=== PATIENT | male | born 1985 | race Caucasian/White ===

== ENCOUNTER 2017-02-21 21:15 | Emergency (ER) | payer BC ==
[~2017-02-21] VITALS: Ht 188 cm; Wt 140.0 kg
[2017-02-21 21:24] VITALS: BP 121/88
[2017-02-21] MEDS ORDERED: diphenhydrAMINE HCL 50 MG CAPSULE PO ONE (22:00)
[2017-02-21] MEDS ORDERED: LIDO:MAALOX 1:1 20 ML SINGLE DOSE PO ONE (22:00)
[2017-02-21] MEDS ORDERED: predniSONE 20 MG TABLET PO ONE (22:00)
[2017-02-21] MEDS ORDERED: FAMOTIDINE 20 MG TABLET PO ONE (22:00)
[2017-02-21] MEDS ORDERED: methylPREDNISolone SOD SUCC PF 125 MG/2 ML VIAL. IM ONE (22:00)
[2017-02-21] MEDS ORDERED: PRED20TA PO (22:00)
--- NOTE | 2017-02-21 22:03 | PHYS DOC ---
General Chief Complaint: SORE THROAT Stated Complaint: SORE THROAT Time Seen by MD: 21:58 Source: patient Exam Limitations: no limitations Problems: History of Present Illness Initial Comments Pt is 31/M to ED c/o sore throat. Pt states he was working outside earlier today and left his drink outside uncovered while he worked. States that at one point without looking into the cup he took a drink and felt as if he swallowed something solid. Almost immediately he developed discomfort described initially as a mild burning, he points to his throat below cricoid cartilage. He tried to ignore it, however thru the day and into tonight mild symptoms have developed into moderate sharp burning pain. Symptoms worse with swallowing food/liquid, but no difficulty passing either. He has become hoarse, with sensation of fullness in his throat denies SHINE/SOB/cough. He called in to work tonight and needs a Dr note, and when discussing treatments he requests medication/discharge without observation period for treatment efficacy. He lives with SO and states she will assist him tonight if needed and he will return to ED if he worsens. Respiratory rate 20, 97% RA in ED. No prior allergy. Timing/Duration: abrupt, this afternoon Severity: moderate Location: throat Prearrival Treatment: no prearrival treatment Modifying Factors: worse with coughing Associated Symptoms: sore throat, voice change Allergies: Coded Allergies: No Known Drug Allergies (Unverified , 07/09/14) Past Medical History Medical History: other (depression) Surgical History: no surgical history Family History Significant Family History: no pertinent family hx Social History Smoker: non-smoker Alcohol: occasionally Drugs: none Constitutional: denies chills, denies fever, denies malaise Ears: denies dizziness, denies pain, denies tinnitus Nose: denies clots, denies congestion, denies epistaxis Throat: see HPI, denies neck stiffness, denies difficulty with fluids Respiratory: see HPI Cardiovascular: denies chest pain, denies palpitations Gastrointestinal: denies nausea, denies vomiting Musculoskeletal: denies back pain, denies joint swelling, denies neck pain Skin: denies lesions, denies lumps, denies rash Neurological: denies headache, denies numbness, denies paresthesia Physical Exam General Appearance: no apparent distress, obese Eyes: bilateral eye normal inspection, bilateral eye PERRL, bilateral eye EOMI Nose: normal inspection Mouth/Throat: normal mouth inspection, pharynx normal Neck: non-tender, full range of motion, supple Cardiovascular/Respiratory: normal peripheral pulses, normal breath sounds, no respiratory distress Neurologic/Psychiatric: 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 Solumedrol 125mg IM given with pepcid 20mg and benadryl 50mg PO. GI cocktail with symptomatic relief. Due to duration of solumedrol and lack of ability to observe rx effectiveness 20mg prednisone given PO. I discussed s/s to monitor and indications to return, pt agrees to f/u expresses agreement/understanding. Departure Time of Disposition: 22:01 Disposition: 01 HOME, SELF-CARE Diagnosis: insect sting allergy Condition: STABLE Patient Instructions: Insect Sting Allergy Additional Instructions: As discussed we have to assume you were stung by an insect trapped in your drink. Work excuse tonight. OTC pepcid and benadryl while taking prednisone. Rx: prednisone Follow up with your doctor tomorrow if no improvement. Return to ED with new or changing symptoms. SHIV AMOS DO Feb 21, 2017 22:03
[2017-02-21] MEDS ORDERED: diphenhydrAMINE HCL 25 MG CAPSULE PO ONE ×2 (22:14→22:15)
== END 2017-02-21 22:28 | disposition home or self-care (01) ==
LOC: ER 21:15
DX: T63.481A Toxic effect of venom of other arthropod, accidental (unintentional), initial encounter (principal); J02.9 Acute pharyngitis, unspecified; Y92.89 Other specified places as the place of occurrence of the external cause
CPT/HCPCS: 96372; 99284; J2930; J7512; Q0163

== ENCOUNTER 2019-07-15 07:23 | Emergency (ER) | payer BC ==
[~2019-07-15] VITALS: Ht 188 cm; Wt 140.0 kg
[2019-07-15 07:23] VITALS: BP 149/88
[~2019-07-15 07:23] MED LIST: PRED20TA PO
[2019-07-15] MEDS ORDERED: IV NORMAL SALINE 1,000ML 1,000 ML IV ONE (08:00)
--- NOTE | 2019-07-15 08:03 | RAD ---
EXAM: CT Abdomen and Pelvis without IV contrast INDICATION: Left flank pain TECHNIQUE: Multi-detector row CT images were acquired from the lung bases through the abdomen and pelvis without the use of IV contrast. Sagittal and coronal images were acquired from the transaxial data. All CT scans performed at this facility utilize dose optimization techniques as appropriate to the exam, including the following: Automated exposure control and adjustment of the mA and/or KV according to patient size (this includes techniques or standardized protocols for targeted exams where dose is indication/reason for exam). ORAL CONTRAST: None COMPARISON: None FINDINGS: The absence of IV contrast limits evaluation of soft tissue pathology. LOWER CHEST: Small hiatal hernia LIVER: Mild diffuse fatty infiltration. BILIARY SYSTEM: Gallbladder is unremarkable. Bile ducts are not dilated. PANCREAS: Unremarkable SPLEEN: Unremarkable ADRENALS: Unremarkable KIDNEYS & URETERS: Mild left hydronephrosis from a mid left ureteral 3 mm stone. BLADDER: Unremarkable REPRODUCTIVE ORGANS: Unremarkable GASTROINTESTINAL: The stomach, small bowel, and colon are unremarkable. The appendix is normal. MESENTERY/PERITONEUM/RETROPERITONEUM: Unremarkable VASCULAR: Unremarkable LYMPH NODES: No adenopathy OSSEOUS & SOFT TISSUES: Unremarkable IMPRESSION: Mild left hydronephrosis and hydroureter related to an obstructing 3 mm mid left ureteral stone. Electronically signed by: Rell Marsh MD (07/15/2019 8:00 AM) [facility]
[2019-07-15 08:06] LABS: BASO # 0.1 x10^3/uL (0.0-0.2); BASO % 1 % (0-3); EOS # 0.1 x10^3/uL (0.0-0.7); EOS % 1 % (0-3); HEMATOCRIT 46.9 % (39.0-53.0); HEMOGLOBIN 15.5 g/dL (13.0-17.5); LYMPH # 1.4 x10^3/uL (1.0-4.8); LYMPH % 16 % (24-48); MEAN CORPUSCULAR HEMOGLOBIN 30 pg (25-35); MEAN CORPUSCULAR HGB CONC 33 g/dL (31-37); MEAN CORPUSCULAR VOLUME 89 fL (79-100); MONO # 0.4 x10^3/uL (0.0-1.1); MONO % 5 % (0-9); NEUT # 6.8 x10^3uL (1.8-7.7); NEUT % 77 % (31-73); PLATELET COUNT 218 x10^3/uL (140-400); RED BLOOD COUNT 5.24 x10^6/uL (4.30-5.70); RED CELL DISTRIBUTION WIDTH 13.2 % (11.5-14.5); WHITE BLOOD COUNT 8.9 x10^3/uL (4.0-11.0)
[2019-07-15] MEDS ORDERED: ONDANSETRON PF 4 MG/2 ML VIAL. IVP ONE (08:15)
[2019-07-15] MEDS ORDERED: KETOROLAC 30 MG/ML VIAL. IVP ONE (08:15)
[2019-07-15] MEDS ORDERED: MORPHINE SULFATE 4 MG/ML DISP.SYRIN. IV ONE (08:15)
--- NOTE | 2019-07-15 08:29 | PHYS DOC ---
Past History Past Medical History: Asthma, Depression Past Surgical History: No Surgical History Alcohol Use: Occasionally Drug Use: None Adult General Chief Complaint Chief Complaint: FLANK PAIN HPI HPI 33-year-old male presents with left flank pain. The patient woke up this morning had sudden onset of left flank pain. He denies any trauma or falls. The patient has had a kidney stone in the past and the pain felt similar. It is moderate to severe in intensity. He describes a deep cramping sensation. He has not noticed any blood in his urine. He denies dysuria or increased sure and frequency. He denies fever or chills. He has no other complaints this time. Review of Systems Review of Systems Constitutional: Denies fever or chills [] Eyes: Denies change in visual acuity, redness, or eye pain [] HENT: Denies nasal congestion or sore throat [] Respiratory: Denies cough or shortness of breath [] Cardiovascular: No additional information not addressed in HPI [] GI: Denies abdominal pain, nausea, vomiting, bloody stools or diarrhea [] : Denies dysuria or hematuria [] Musculoskeletal: Left flank pain[] Integument: Denies rash or skin lesions [] Neurologic: Denies headache, focal weakness or sensory changes [] Endocrine: Denies polyuria or polydipsia [] All other systems were reviewed and found to be within normal limits, except as documented in this note. Current Medications Current Medications Current Medications Medications (Trade) Dose Ordered Sig/Kimmy Start Time Stop Time Status Last Admin Dose Admin Ketorolac Tromethamine (Toradol 30mg Vial) 30 mg 1X ONCE 07/15/19 08:15 07/15/19 08:16 DC Morphine Sulfate (Morphine 4mg Syringe) 4 mg 1X ONCE 07/15/19 08:15 07/15/19 08:16 DC Ondansetron HCl (Zofran) 4 mg 1X ONCE 07/15/19 08:15 07/15/19 08:16 DC Sodium Chloride 1,000 ml @ 1,000 mls/hr 1X ONCE 07/15/19 08:00 07/15/19 08:59 Allergies Allergies Allergies Coded Allergies Type Severity Reaction Last Updated Verified No Known Drug Allergies 07/09/14 No Physical Exam Physical Exam Constitutional: Well developed, well nourished, no acute distress, non-toxic appearance. [] HENT: Normocephalic, atraumatic, bilateral external ears normal, oropharynx moist, no oral exudates, nose normal. [] Eyes: PERRLA, EOMI, conjunctiva normal, no discharge. [] Neck: Normal range of motion, no tenderness, supple, no stridor. [] Cardiovascular:Heart rate regular rhythm, no murmur [] Lungs & Thorax: Bilateral breath sounds clear to auscultation [] Abdomen: Bowel sounds normal, soft, no tenderness, no masses, no pulsatile masses. [] Skin: Warm, dry, no erythema, no rash. [] Back: No tenderness. left CVA tenderness. [] Extremities: No tenderness, no cyanosis, no clubbing, ROM intact, no edema. [] Neurologic: Alert and oriented X 3, normal motor function, normal sensory function, no focal deficits noted. [] Psychologic: Affect normal, judgement normal, mood normal. [] Current Patient Data Lab Results Laboratory Tests Test 07/15/19 07:47 White Blood Count 8.9 x10^3/uL (4.0-11.0) Red Blood Count 5.24 x10^6/uL (4.30-5.70) Hemoglobin 15.5 g/dL (13.0-17.5) Hematocrit 46.9 % (39.0-53.0) Mean Corpuscular Volume 89 fL (79-100) Mean Corpuscular Hemoglobin 30 pg (25-35) Mean Corpuscular Hemoglobin Concent 33 g/dL (31-37) Red Cell Distribution Width 13.2 % (11.5-14.5) Platelet Count 218 x10^3/uL (140-400) Neutrophils (%) (Auto) 77 % (31-73) H Lymphocytes (%) (Auto) 16 % (24-48) L Monocytes (%) (Auto) 5 % (0-9) Eosinophils (%) (Auto) 1 % (0-3) Basophils (%) (Auto) 1 % (0-3) Neutrophils # (Auto) 6.8 x10^3uL (1.8-7.7) Lymphocytes # (Auto) 1.4 x10^3/uL (1.0-4.8) Monocytes # (Auto) 0.4 x10^3/uL (0.0-1.1) Eosinophils # (Auto) 0.1 x10^3/uL (0.0-0.7) Basophils # (Auto) 0.1 x10^3/uL (0.0-0.2) EKG EKG [] Radiology/Procedures Radiology/Procedures [] Impressions: EXAM: CT Abdomen and Pelvis without IV contrast INDICATION: Left flank pain TECHNIQUE: Multi-detector row CT images were acquired from the lung bases through the abdomen and pelvis without the use of IV contrast. Sagittal and coronal images were acquired from the transaxial data. All CT scans performed at this facility utilize dose optimization techniques as appropriate to the exam, including the following: Automated exposure control and adjustment of the mA and/or KV according to patient size (this includes techniques or standardized protocols for targeted exams where dose is indication/reason for exam). ORAL CONTRAST: None COMPARISON: None FINDINGS: The absence of IV contrast limits evaluation of soft tissue pathology. LOWER CHEST: Small hiatal hernia LIVER: Mild diffuse fatty infiltration. BILIARY SYSTEM: Gallbladder is unremarkable. Bile ducts are not dilated. PANCREAS: Unremarkable SPLEEN: Unremarkable ADRENALS: Unremarkable KIDNEYS & URETERS: Mild left hydronephrosis from a mid left ureteral 3 mm stone. BLADDER: Unremarkable REPRODUCTIVE ORGANS: Unremarkable GASTROINTESTINAL: The stomach, small bowel, and colon are unremarkable. The appendix is normal. MESENTERY/PERITONEUM/RETROPERITONEUM: Unremarkable VASCULAR: Unremarkable LYMPH NODES: No adenopathy OSSEOUS & SOFT TISSUES: Unremarkable IMPRESSION: Mild left hydronephrosis and hydroureter related to an obstructing 3 mm mid left ureteral stone. Electronically signed by: Ulises Marsh MD (07/15/2019 8:00 AM) [facility] DICTATED AND SIGNED BY: ULISES MARSH MD DATE: 07/15/19 0800 CC: JULIAN LEONG DO; TARAS DURAN ~ Course & Med Decision Making Course & Med Decision Making Pertinent Labs and Imaging studies reviewed. (See chart for details) Patient was given Toradol and morphine for his pain. The patient does appear to have a kidney stone on the left side. He has some hydroureter and hydro-nephrosi s with a 3 mm obstructing stone. Patient's CBC is normal. The patient's urinalysis is negative for infection. I will discharge him with [place] and Flomax. This should pass on its own, but if this does not he will follow-up with urology. He is stable for discharge at this time. [] Dragon Disclaimer Dragon Disclaimer This electronic medical record was generated, in whole or in part, using a voice recognition dictation system. Departure Departure: Impression: Primary Impression: Kidney stone on left side Disposition: HOME, SELF-CARE Condition: STABLE Referrals: TARAS DURAN (PCP) Patient Instructions: Kidney Stones, [id number] Scripts Tamsulosin Hcl (FLOMAX) 0.4 Mg Cap.er.24h 1 CAP PO DAILY for kidney stone for 14 Days, #14 CAP 0 Refills Prov: JULIAN LEONG DO 07/15/19 Hydrocodone Bit/Acetaminophen (NORCO 5-325 TABLET) 1 Each Tablet 1 TAB PO PRN Q6HRS PRN for PAIN, #14 TAB 0 Refills Prov: JULIAN LEONG DO 07/15/19 JULIAN LEONG DO Jul 15, 2019 08:29
[2019-07-15 09:09] LABS: BILIRUBIN,URINE NEG (NEG); CLARITY,URINE HAZY; COLOR,URINE AMBER; GLUCOSE,URINE NEG (NEG); NITRITE,URINE NEG (NEG); UROBILINOGEN,URINE 0.2 mg/dL (0.2 mg/dL)
[2019-07-15 09:10] LABS: AMORPHOUS SEDIMENT,UR PRESENT /HPF; BACTERIA,URINE FEW /HPF (0-FEW); RBC,URINE >40 /HPF (0-2); SQUAMOUS EPITHELIAL CELL,UR OCC /LPF
[2019-07-15 09:11] LABS: YEAST,URINE PRESENT /HPF
[2019-07-15] MEDS ORDERED: TAMS0.4C97 PO (10:05)
[2019-07-15] MEDS ORDERED: HYDR-3165 PO (10:05)
== END 2019-07-15 10:15 | disposition home or self-care (01) ==
LOC: ER 07:23
DX: N20.0 Calculus of kidney (principal); J45.909 Unspecified asthma, uncomplicated
CPT/HCPCS: 36415; 74176; 81001; 85025; 96374; 96375; 99284; J1885; J2270; J2405; J7030